=== PATIENT | male | born 1955 | race Two or more races ===

== ENCOUNTER 2020-02-09 00:37 | Emergency (ER) | payer OTHER, MEDICAID ==
[~2020-02-09] VITALS: Ht 170.2 cm; Wt 73.0 kg
[2020-02-09 00:55] VITALS: Ht 170.2 cm; Wt 73.0 kg
[2020-02-09 02:56] VITALS: BP 1150/78
== END 2020-02-09 03:00 | disposition home or self-care (01) ==
LOC: ED 00:37
DX: S52.571A Other intraarticular fracture of lower end of right radius, initial encounter for closed fracture (principal); I10 Essential (primary) hypertension; E78.00 Pure hypercholesterolemia, unspecified; W21.02XA Struck by soccer ball, initial encounter; Y93.66 Activity, soccer; Y92.322 Soccer field as the place of occurrence of the external cause; Y99.8 Other external cause status
CPT/HCPCS: Q0092